=== PATIENT | female | born 1960 | race Caucasian/White ===

== ENCOUNTER 2021-05-28 12:49 | Emergency (ER) | payer OTHER, MEDICAID ==
[~2021-05-28] VITALS: Ht 157.5 cm; Wt 66.7 kg
[2021-05-28 13:33] VITALS: BP 160/100
[2021-05-28] MEDS ORDERED: ASPIRIN 325 MG TAB PO ONE (14:25)
[2021-05-28 14:59] LABS: BASOPHILS % (AUTO) 0.3 % (0.0-2.0); EOSINOPHILS # (AUTO) 0.1 K/uL (0-0.4); EOSINOPHILS % (AUTO) 1.8 % (0.0-4.0); HEMATOCRIT 43.7 % (36-48); HEMOGLOBIN 14.8 g/dL (12.0-16.0); LYMPHOCYTES # (AUTO) 2.5 K/uL (2.5-16.5); MEAN CORPUSCULAR HEMOGLOBIN 35 pg (27-31); MEAN CORPUSCULAR HGB CONC 34 g/dL (33-37); MEAN CORPUSCULAR VOLUME 103.1 fL (80-94); MONOCYTES # (AUTO) 0.3 K/uL (0.8-1.0); MONOCYTES % (AUTO) 4.4 % (1.7-9.3); NEUTROPHILS # (AUTO) 4.7 K/uL (1.8-7.7); NEUTROPHILS % (AUTO) 61.5 % (42.2-75.2); PLATELET COUNT (AUTO) 247 K/uL (140-450); RED BLOOD CELL COUNT(AUTO) 4.24 MIL/uL (4.20-5.40); RED CELL DISTRIBUTION WIDTH 12.1 % (11.6-13.7); WHITE BLOOD COUNT (AUTO) 7.7 K/uL (4.8-10.8)
[2021-05-28 15:22] LABS: ANION GAP 14.9 (8-16); CARBON DIOXIDE 27.8 mmol/L (21-32); CREATININE 0.7 mg/dL (0.6-1.3); POTASSIUM 3.7 mmol/L (3.5-5.1)
[2021-05-28] MEDS ORDERED: PRED20TA6 PO (15:39)
[2021-05-28] MEDS ORDERED: ASPI-1822 PO (15:39)
[2021-05-28] MEDS ORDERED: INHA1SPA74 MC (15:39)
[2021-05-28] MEDS ORDERED: ASPIRIN 325 MG TAB ONE (15:56)
[2021-05-28 16:01] VITALS: BP 122/70
--- NOTE | 2021-05-28 16:02 | NUR ---
Patient discharged with v/s stable. Written and verbal after care instructions given and explained. Patient verbalized understanding. Ambulatory with steady gait. All questions addressed prior to discharge. Advised to follow up with PMD.
== END 2021-05-28 16:02 | disposition home or self-care (01) ==
LOC: MED 12:49
DX: J45.901 Unspecified asthma with (acute) exacerbation (principal); I10 Essential (primary) hypertension; E78.00 Pure hypercholesterolemia, unspecified
CPT/HCPCS: 36415; 71045; 80048; 84484; 85025; 93005; 99285